=== PATIENT | female | born 1980 | race Caucasian/White ===

== ENCOUNTER → 2017-11-21 | Outpatient (CLI) | payer SELFPAY ==
[~2017-11-21] MED LIST: ASCO500; CALCAVITDA PO; CEPH500 PO; CIPR500 PO; DOXY100 PO; ESCI5; ESTROGEN PO; FLUC150A PO; HYDACE5 PO; HYOS.125 SL; IBUP200 PO; Keflex500 MG PO; LEVSOD100 PO; LEVSOD75; LEVSOD88; MAGGLU250 PO; METR500 PO; MULT50L; MULTIVITAMIN PO; Macrobid 100 M100 MG PO; Norco 5-325 Ta1 EACH PO; OXYACE5T PO; PHENA100 PO; PROACE100; PROGESTERONE M100 GM; PROGESTERONE PO; PROM25 PO; Percocet 5-3251 EACH PO; Pyridium100 MG PO; Pyridium200 MG PO; RANI150 PO; RXHYDACE PO; SULTRIDS PO; THYROID SUPPLEMENT; Zofran Odt4 MG SL; [UNRECOGNIZED DRUG - REMARK]
[2017-11-21 21:02] LABS: Candida species (DNA Probe) Negative (NEGATIVE); G. vaginalis (DNA Probe) Negative (NEGATIVE); T. vaginalis (DNA Probe) Negative (NEGATIVE)
== END | disposition home or self-care (01) ==
LOC: LAB SHORT 14:05 → LAB 14:05
PROVIDERS: Obstetrics & Gynecology
DX: N76.0 Acute vaginitis (principal)
CPT/HCPCS: 87480; 87510; 87660